=== PATIENT | female | born 1990 | race Caucasian/White ===

== ENCOUNTER 2021-12-16 23:29 | Emergency (ER) | payer OTHER ==
[~2021-12-16] VITALS: Wt 59.0 kg
== END 2021-12-17 01:55 | disposition home or self-care (01) ==
LOC: ED 23:29
DX: S52.125A Nondisplaced fracture of head of left radius, initial encounter for closed fracture (principal); X58.XXXA Exposure to other specified factors, initial encounter; Y93.89 Activity, other specified; Y92.89 Other specified places as the place of occurrence of the external cause; Y99.8 Other external cause status